=== PATIENT | male | born 1980 | race African-American/Black ===

== ENCOUNTER 2019-05-14 08:35 | Emergency (ER) | payer SELFPAY ==
[~2019-05-14] VITALS: Ht 170.2 cm; Wt 114.1 kg
[~2019-05-14 08:35] MED LIST: HYDR25SU23 PR
[2019-05-14 08:40] VITALS: BP 167/111; PULSE 104; RESP 18; Ht 170.2 cm; Wt 114.1 kg
== END 2019-05-14 09:57 | disposition home or self-care (01) ==
LOC: FTE 08:35
DX: K64.9 Unspecified hemorrhoids (principal); J45.909 Unspecified asthma, uncomplicated
CPT/HCPCS: 99282